=== PATIENT | female | born 1950 | race Two or more races ===

== ENCOUNTER 2023-09-11 06:42 | Day surgery (SDC) | payer OTHER ==
[2023-09-08 09:27] LABS: PH,URINE 5.5 (5.0-8.0); URINE APPEARANCE Clear; URINE BILIRRUBIN Negative (NEGATIVE); URINE BLOOD Moderate; URINE COLOR Yellow; URINE GLUCOSE Negative (NEGATIVE); URINE LEUKOCYTE Small; URINE NITRATE Positive; URINE PROTEIN Negative (NEGATIVE); URINE UROBILINOGEN 0.2 E.U./dl
[2023-09-08 09:30] LABS: URINE EPITHELIAL CELLS 12.3 uL (0.0-38.8); URINE RBC 4.4 uL (0.0-20.8); URINE WBC 71.5 uL (0.0-23.2)
[2023-09-08 09:38] LABS: HEMATOCRIT 36.1 % (36.0-45.00); HEMOGLOBIN 12.1 g/dL (12.0-15.00); MEAN CELL VOLUME 82.7 fL (80.00-100.00); MEAN CORPUSCULAR HEMOGLOBIN 27.8 pg (27.00-32.0); MEAN CORPUSCULAR HGB CONC 33.6 g/dl (32.0-36.0); RED BLOOD COUNT 4.36 M/uL (4.00-6.00); RED CELL DISTRIBUTION WIDTH 14.3 % (11.5-14.5)
[2023-09-08 09:49] LABS: URINE BACTERIA > 9821.5 uL (0.0-1933)
[2023-09-08 10:18] LABS: PLATELET COUNT 260 K/uL (150-450)
[2023-09-08 10:28] LABS: INR 1.05; PARTIAL THROMBOPLASTIN TIME 28.8 SECONDS (22.0-34.0)
[2023-09-08 10:40] LABS: ALBUMIN 3.8 gm/dL (3.4-5.0); BILIRUBIN TOTAL 0.54 mg/dL (0.3-1.2); CALCIUM 8.5 mg/dL (8.5-10.1); CREATININE SERUM 0.52 mg/dL (0.55-1.02); GFR 114.96; GLOBULINA 3.5 G/DL (2.4-3.5); POTASSIUM 3.36 mEq/L (3.5-5.1); TOTAL PROTEIN 7.3 gm/dL (6.4-8.2)
== END 2023-09-11 17:46 | disposition home or self-care (01) ==
LOC: CIR.AMB 06:42
PROVIDERS: ATTEND Surgery
DX: D05.11 Intraductal carcinoma in situ of right breast (principal); N60.92 Unspecified benign mammary dysplasia of left breast; N60.82 Other benign mammary dysplasias of left breast; R92.1 Mammographic calcification found on diagnostic imaging of breast; D48.62 Neoplasm of uncertain behavior of left breast; D48.61 Neoplasm of uncertain behavior of right breast; Z20.822 Contact with and (suspected) exposure to COVID-19; I10 Essential (primary) hypertension; E78.5 Hyperlipidemia, unspecified
CPT/HCPCS: 19301; 19281; 19282; L8699

== ENCOUNTER 2025-05-12 06:20 | Day surgery (SDC) | payer OTHER ==
[2025-05-10 11:58] VITALS: BP 142/76
[~2025-05-12] VITALS: Ht 157.5 cm; Wt 70.8 kg
[~2025-05-12 06:20] MED LIST: BUPIVACAINE HCL/MPF 0.5% 30ML VIAL ONE; EVISTA60 MG PO; GLIPIZIDE XL10 MG PO; LIDOCAINE HCL 1%/EPINEPHRINE 20ML VIAL IJ ONE; LOSARTAN POTASS25 MG PO; METFORMIN HCL500 M3 PO; PLAVIX75 MG PO; ZOCOR40 MG PO
[2025-05-12] MEDS ORDERED: CEFAZOLIN SODIUM 1,000 MG VIAL ONE (11:08)
[2025-05-12] MEDS ORDERED: CHLORHEXIDINE GLUCONATE 120 ML BOTTLE TOP ONE (15:49)
== END 2025-05-12 19:20 | disposition home or self-care (01) ==
LOC: CIR.AMB 06:20
PROVIDERS: ATTEND Surgery
DX: D48.61 Neoplasm of uncertain behavior of right breast (principal); D48.62 Neoplasm of uncertain behavior of left breast; N60.22 Fibroadenosis of left breast; N60.82 Other benign mammary dysplasias of left breast; N60.81 Other benign mammary dysplasias of right breast; R92.1 Mammographic calcification found on diagnostic imaging of breast; Z91.013 Allergy to seafood; Z91.040 Latex allergy status; Z88.6 Allergy status to analgesic agent; Z88.5 Allergy status to narcotic agent